=== PATIENT | male | born 1945 | race Caucasian/White ===

== ENCOUNTER → 2017-10-16 | Outpatient (CLI) | payer MEDICARE, OTHER ==
--- NOTE | 2017-10-16 13:58 | RADIOLOGY REPORT (SQ) ---
EXAM DESCRIPTION: CT CHEST WITHOUT COMPLETED DATE/TIME: 10/16/2017 1:12 pm REASON FOR STUDY: DYSPNEA (R06.00) R06.00 DYSPNEA, UNSPECIFIED COMPARISON: None. TECHNIQUE: CT scan performed of the chest without intravenous contrast. Images reviewed with lung, soft tissue and bone windows. Reconstructed coronal and sagittal MPR images reviewed. All images st ored on PACS. All CT scanners at this facility use dose modulation, iterative reconstruction, and/or weight based d osing when appropriate to reduce radiation dose to as low as reasonably achievable (ALARA). [facility]: Dose Right [facility]: CareDose [facility]: Dose Right [facility]: Teradose 4D [facility]: Smart [employer] RADIATION DOSE: CT Rad equipment meets quality standard of care and radiation dose reduction techniq ues were employed. CTDIvol: 15.3 mGy. DLP: 604 mGy-cm. mGy. LIMITATIONS: No technical limitations. FINDINGS: LUNGS AND PLEURA: Paraseptal emphysema. Spiculated nodule anterior right upper lobe measu ring about 13 mm suspicious for neoplasm. No effusions. HILAR AND MEDIASTINAL STRUCTURES: Small mediastinal nodes measuring up to about 1 cm in short axis. No bulky adenopathy. HEART AND VASCULAR STRUCTURES: No aneurysm. No pericardial effusion. UPPER ABDOMEN: No significant findings. Limited exam. THYROID AND OTHER SOFT TISSUES: No masses. No adenopathy. BONES: No significant finding. HARDWARE: None in the chest. OTHER: No other significant findings. IMPRESSION: Right upper lobe pulmonary nodule suspicious for neoplasm. Consider correlation with PE T-CT to determine if hypermetabolic. Lesion is amenable to CT-guided biopsy. . TECHNICAL DOCUMENTATION: JOB ID: [id number] Quality ID # [id number]: Final reports with documentation of one or more dose reduction techniques (e.g., Au tomated exposure control, adjustment of the mA and/or kV according to patient size, use of iterative reconstruction technique) 2010 [employer]- All Rights Reserved
== END ==
LOC: RAD 12:57
PROVIDERS: ATTEND Physician Assistant
DX: R06.00 Dyspnea, unspecified (principal); R91.1 Solitary pulmonary nodule
CPT/HCPCS: 71250

== ENCOUNTER → 2017-10-28 | Outpatient (CLI) | payer MEDICARE, OTHER ==
--- NOTE | 2017-10-29 08:03 | RADIOLOGY REPORT (SQ) ---
EXAM DESCRIPTION: PET CT SKULL/THIGH COMPLETED DATE/TIME: 10/28/2017 8:29 pm REASON FOR STUDY: R91.8 OTHER NONSPECIFIC ABNORMAL FINDING OF LUNG FIELD R91.1 SOLITARY PULMONARY N ODULE R91.8 OTHER NONSPECIFIC ABNORMAL FINDING OF LUNG FIELD COMPARISON: CT chest 10/16/2017 RADIONUCLIDE AND DOSE: 9.5 mCi F18 FDG The route of agent administration: Intravenous FASTING BLOOD SUGAR: 86 mg/dl CONTRAST TYPE AND DOSE: No CT contrast given. TECHNIQUE: Blood glucose level was verified. Above dose of FDG was injected intravenously. 2-D seg mented attenuation correction images were obtained from the base of the skull to the midthighs. Nonc ontrast CT images were obtained for attenuation correction and fusion with emission images. CT image s were performed without oral or intravenous contrast and are not sensitive for parenchymal lesions. A series of overlapping emission PET images were obtained. Images reviewed and manipulated at [facility] work station by the radiologist. Images stored on PACS. LIMITATIONS: None. FINDINGS: HEAD AND NECK: No areas of abnormal metabolic activity in the soft tissues of the head and neck. CHEST: A right upper lobe 1.4 x 1.3 cm spiculated nodule is present on axial image 72, just deep to t he right anterior 2nd rib. This has SUV of 5.4. There are multiple enlarged metabolically active lymph nodes as follows: Right paratracheal 2.5 x 1.1 cm image 80, SUV 2.6 Precarinal 1.8 x 1.3 cm image 85, SUV 3 Precarinal 2.1 x 1.2 cm image 85, SUV 2.8 Right hilar 1.6 x 1.3 cm image 95, SUV 3.2 Left hilar 1.5 x 1.2 cm image 93, SUV 3.5 Sub- carinal 3.1 x 1.0 cm image 95, SUV 3.2 ABDOMEN AND PELVIS: No areas of abnormal metabolic activity in the abdomen or pelvis. Expected physi ologic activity is present in the genitourinary system and bowel. PROXIMAL LOWER EXTREMITIES: No areas of abnormal metabolic activity in the soft tissues of the lower extremities. BONES: No abnormal metabolic activity in the visualized skeleton. ADDITIONAL CT FINDINGS: Mild diffuse degenerative changes throughout the spine. Dependent atelectasi s right posterior costophrenic sulcus. Small hiatal hernia. Bilateral renal cortical cysts. OTHER: Liver background 2.6 SUV. Blood pool background 2.3 SUV IMPRESSION: Hypermetabolic right upper lobe nodule worrisome for malignancy, just deep to the anteri or right 2nd rib. Mediastinal adenopathy TECHNICAL DOCUMENTATION: JOB ID: [id number] [employer]- All Rights Reserved Reading location - IP/workstation name: [email or web address]
== END ==
LOC: RAD 16:43
PROVIDERS: ATTEND Physician Assistant
DX: R91.1 Solitary pulmonary nodule (principal); R91.8 Other nonspecific abnormal finding of lung field
CPT/HCPCS: 78815; A9552

== ENCOUNTER → 2017-11-10 | Day surgery (SDC) | payer MEDICARE, OTHER ==
[2017-11-10 09:47] VITALS: BP 129/81
[2017-11-10 09:51] LABS: HEMATOCRIT 46.9 % (37.9-51.0); MEAN CORPUSCULAR HEMOGLOBIN 30.9 pg (27.0-33.4); MEAN CORPUSCULAR HGB CONC 34.1 g/dL (32.0-36.0); MEAN CORPUSCULAR VOLUME 91 fl (80-97); PLATELET COUNT 222 10^3/uL (150-450); RED BLOOD COUNT 5.17 10^6/uL (4.35-5.55); RED CELL DISTRIBUTION WIDTH 13.8 % (11.5-14.0); WHITE BLOOD COUNT 8.9 10^3/uL (4.0-10.5)
[2017-11-10 10:06] LABS: INTERNATIONAL RATION (INR) 0.88; PROTHROMBIN TIME 12.6 SEC (11.4-15.4)
[2017-11-10 10:07] LABS: PARTIAL THROMBOPLASTIN TIME 30.4 SEC (23.5-35.8)
[2017-11-10 10:09] LABS: BLOOD UREA NITROGEN 13 mg/dL (7-20)
--- NOTE | 2017-11-10 17:00 | RADIOLOGY REPORT (SQ) ---
EXAM DESCRIPTION: CT CHEST WITHOUT COMPLETED DATE/TIME: 11/10/2017 11:09 am REASON FOR STUDY: SOLITARY PULMONARY NODULE R91.1 SOLITARY PULMONARY NODULE Z79.01 CORRECTION (CURR ENT) USE OF ANTICOAGULANTS COMPARISON: 10/16/2017. TECHNIQUE: Limited CT scan performed of the chest without intravenous contrast to evaluate for percu taneous CT-guided biopsy. Images reviewed with lung, soft tissue and bone windows. Reconstructed co eric and sagittal MPR images reviewed. All images stored on PACS. All CT scanners at this facility use dose modulation, iterative reconstruction, and/or weight based d osing when appropriate to reduce radiation dose to as low as reasonably achievable (ALARA). [facility]: Dose Right [facility]: CareDose [facility]: Dose Right [facility]: Teradose 4D [facility]: [employer] RADIATION DOSE: CT Rad equipment meets quality standard of care and radiation dose reduction techniq ues were employed. CTDIvol: 19.4 mGy. DLP: 354 mGy-cm. mGy. LIMITATIONS: No technical limitations. FINDINGS: Spiculated mass in the right upper lobe. Located immediately adjacent to the 2nd rib. Du e to the location and distance from the skin surface, it was felt that there was not an adequate wind ow to safely perform percutaneous biopsy. Anterior approach had a very narrow window with at least 1 0 cm distance from the skin surface. Axillary approach and posterior approach would not be feasible due to overlying axillary structures and the scapula. IMPRESSION: SPICULATED MASS IN THE RIGHT UPPER LOBE WITH FINDINGS ABOVE. TECHNICAL DOCUMENTATION: JOB ID: [id number] Quality ID # [id number]: Final reports with documentation of one or more dose reduction techniques (e.g., Au tomated exposure control, adjustment of the mA and/or kV according to patient size, use of iterative reconstruction technique) 2010 [employer]- All Rights Reserved Reading location - IP/workstation name: [email or web address]
== END ==
LOC: RAD 08:49
PROVIDERS: ATTEND Physician Assistant
PROC: 0BBC3ZX Excision of Right Upper Lung Lobe, Percutaneous Approach, Diagnostic (ICD-10-PCS; principal; 2017-11-10)
DX: R91.1 Solitary pulmonary nodule (principal); Z79.01 Long term (current) use of anticoagulants
CPT/HCPCS: 36415; 71250; 82565; 84520; 85027; 85610; 85730

== ENCOUNTER → 2018-06-22 | Outpatient (CLI) | payer MEDICARE, OTHER ==
--- NOTE | 2018-06-22 13:40 | RADIOLOGY REPORT (SQ) ---
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 TECHNIQUE: CT scan performed of the chest without intravenous contrast. Images reviewed with lung, soft tissue and bone windows. Reconstructed coronal and sagittal MPR images reviewed. All images st ored on PACS. All CT scanners at this facility use dose modulation, iterative reconstruction, and/or weight based d osing when appropriate to reduce radiation dose to as low as reasonably achievable (ALARA). [facility]: Dose Right [facility]: CareDose [facility]: Dose Right [facility]: Teradose 4D [facility]: [employer] RADIATION DOSE: CT Rad equipment meets quality standard of care and radiation dose reduction techniq ues were employed. CTDIvol: 13.6 mGy. DLP: 522 mGy-cm. mGy. LIMITATIONS: No technical limitations. FINDINGS: LUNGS AND PLEURA: Status post wedge resection of previously described right upper lobe hyp ermetabolic nodule. There is a rind of partially calcified tissue in the surgical bed. No new nodul es. No effusions. HILAR AND MEDIASTINAL STRUCTURES: No identified masses or abnormal nodes. No obvious aneurysm. HEART AND VASCULAR STRUCTURES: No aneurysm. No pericardial effusion. UPPER ABDOMEN: No significant findings. Limited exam. THYROID AND OTHER SOFT TISSUES: No masses. No adenopathy. BONES: No significant finding. HARDWARE: None in the chest. OTHER: No other significant findings. IMPRESSION: Expected postsurgical changes. No evidence of metastatic disease. TECHNICAL DOCUMENTATION: JOB ID: [id number] Quality ID # [id number]: Final reports with documentation of one or more dose reduction techniques (e.g., Au tomated exposure control, adjustment of the mA and/or kV according to patient size, use of iterative reconstruction technique) 2010 [employer]- All Rights Reserved Reading location - IP/workstation name: [email or web address]
== END ==
LOC: RAD 16:32
PROVIDERS: ATTEND Physician Assistant
DX: C34.91 Malignant neoplasm of unspecified part of right bronchus or lung (principal)
CPT/HCPCS: 71250

== ENCOUNTER 2019-03-24 03:53 | Emergency (ER) | payer MEDICARE, OTHER ==
--- NOTE | 2019-03-24 04:41 | ER Document Report ---
ED Respiratory Problem - General Chief Complaint: Breathing Difficulty Stated Complaint: SHORTNESS OF BREATH Time Seen by Provider: 03/24/19 04:21 Primary Care Provider: DOLLY HOPKINS MD [ACTIVE STAFF] - Follow up in 3-5 days Notes: Patient is a 74-year-old male that comes to the emergency department for chief complaint of shortness of breath. He states that he has had shortness of breath ever since he had surgery on his right ribs for repair (states that his ribs were spread to far with the previously performed partial lobectomy of the right lung for cancer, this was repaired with mesh by Dr. Danuta Read at [facility] 2 weeks ago). He states he has been tracking his home oxygen saturation, he is averaging at 95%, he does not wear home oxygen. He states that tonight he dropped down into the mid to low 80s while walking and became concerned. He denies fever, wheezing, chest pain, lower extremity swelling. He denies history of blood clots. Past medical history of COPD, former smoker stopped this year. Remaining medical history includes hypertension, BPH, hyperlipidemia. TRAVEL OUTSIDE OF THE [place] IN LAST 30 DAYS: No - Related Data Allergies/Adverse Reactions: No Known Allergies Allergy (Verified 11/10/17 09:23) Past Medical History - General Information source: Patient - Social History Smoking Status: Former Smoker Frequency of alcohol use: None Drug Abuse: None Lives with: Alone Family History: Reviewed & Not Pertinent - Past Medical History Cardiac Medical History: Reports: Hx Coronary Artery Disease - Angioplasty "a long time ago", "im not sure what they found", Hx Hypertension Denies: Hx Heart Attack Pulmonary Medical History: Reports: Hx COPD Denies: Hx Asthma, Hx Bronchitis, Hx Pneumonia Neurological Medical History: Denies: Hx Cerebrovascular Accident, Hx Seizures Malignancy Medical History: Reports Hx Lung Cancer - Status post right lung resection Musculoskeletal Medical History: Denies Hx Arthritis Past Surgical History: Reports: Hx Orthopedic Surgery - back 2005, finger 2006, Other - Partial lobectomy of the right lung, repair of the ribs after the surgery - Immunizations Hx Diphtheria, Pertussis, Tetanus Vaccination: Yes - 2006 Review of Systems - Review of Systems Constitutional: No symptoms reported EENT: No symptoms reported Cardiovascular: No symptoms reported Respiratory: See HPI Gastrointestinal: No symptoms reported Genitourinary: No symptoms reported Male Genitourinary: No symptoms reported Musculoskeletal: No symptoms reported Skin: No symptoms reported Hematologic/Lymphatic: No symptoms reported Neurological/Psychological: No symptoms reported Physical Exam - Vital signs Vitals: Temp Pulse Resp BP Pulse Ox 97.6 F 73 22 H 178/93 H 96 03/24/19 04:11 03/24/19 04:11 03/24/19 04:11 03/24/19 04:11 03/24/19 04:11 - Notes Notes: GENERAL: Alert, interacts well. No acute distress. HEAD: Normocephalic, atraumatic. EYES: Pupils equal, round, and reactive to light. Extraocular movements intact. ENT: Oral mucosa moist, tongue midline. Oropharynx unremarkable. Airway patent. Mild congestion of the nares, no nasal septal hematoma, TM's intact. NECK: Full range of motion. Supple. Trachea midline. LUNGS: Mildly decreased breath sounds throughout, no wheezing, rales, or rhonchi. No respiratory distress. Speaks in full sentences. HEART: Regular rate and rhythm. No murmur ABDOMEN: Soft, non-tender. Non-distended. GENITOURINARY: Deferred EXTREMITIES: Moves all 4 extremities spontaneously. No edema, normal radial and dorsalis pedis pulses bilaterally. No cyanosis. BACK: no cervical, thoracic, lumbar midline tenderness. No saddle anesthesia, normal distal neurovascular exam. Moves all extremities in full range of motion. NEUROLOGICAL: Alert and oriented x3. Normal speech. Cranial nerves II through XII grossly intact. PSYCH: Normal affect, normal mood. SKIN: Warm, dry, normal turgor. Well-healed linear scar over the right lower lateral chest/ribs area. Course - Re-evaluation Re-evalutation: Lungs are actually clear on exam, no edema of the lower extremities noted, patient is not tachypneic, patient is not hypoxic. Patient is postoperative with an obvious postoperative scar on the right side which is healed well. Chest x-ray clear, CBC, chemistry, troponin, BNP are all unremarkable. Discussed with patient. Because of his postop and because of his dyspnea CTA was performed, however this was negative for any acute findings, just shows emphysema and previous surgery on the right lung. No pulmonary embolus. Patient ambulated with pulse ox, he maintained 98% without any desaturation or labored breathing. I discussed the patient. Patient is very relieved about this. Patient does have some mild sinus congestion, after further discussion there appears to be some component of sinus drainage along with this. Given recommendations for this. 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 Patient states satisfaction and agreement. Stable at time of discharge. - Vital Signs Vital signs: Temp Pulse Resp BP Pulse Ox 97.7 F 73 20 111/92 H 96 03/24/19 07:18 03/24/19 04:11 03/24/19 07:18 03/24/19 07:18 03/24/19 07:18 - Laboratory Result Diagrams: 03/24/19 04:48 03/24/19 04:48 Laboratory results interpreted by me: 03/24/19 04:48 Eosinophils % 6.1 H Discharge - Discharge Clinical Impression: Shortness of breath Condition: Stable Disposition: HOME, SELF-CARE Additional Instructions: No acute findings are noted on your evaluation including imaging of the lungs and blood vessels to the lungs. No pneumonia, fluid, or blood clots are seen. There actually seems to be a sinus congestion component to your symptoms, recommend [id number] anti-allergy such as cetirizine, continue nasal spray, follow-up with primary care. Return if you worsen including fever, passing out, chest pain, difficulty breathing, or any other concerning or worsening symptoms. Referrals: DOLLY HOPKINS MD [ACTIVE STAFF] - Follow up in 3-5 days
[2019-03-24 05:05] LABS: ABSOLUTE BASOPHILS # (AUTO) 0.1 10^3/uL (0.0-0.2); ABSOLUTE EOSINOPHILS # (AUTO) 0.5 10^3/uL (0.0-0.6); ABSOLUTE LYMPHOCYTES (AUTO) 1.3 10^3/uL (0.5-4.7); ABSOLUTE MONOCYTES (AUTO) 0.7 10^3/uL (0.1-1.4); ABSOLUTE NEUT (AUTO) 6.3 10^3/uL (1.7-8.2); BASOPHILS % (AUTO) 1.1 % (0-2); EOSINOPHILS % (AUTO) 6.1 % (0-6); HEMATOCRIT 41.3 % (37.9-51.0); HEMOGLOBIN 13.8 g/dL (13.5-17.0); LYMPHOCYTES % (AUTO) 14.3 % (13-45); MEAN CORPUSCULAR HEMOGLOBIN 29.9 pg (27.0-33.4); MEAN CORPUSCULAR HGB CONC 33.3 g/dL (32.0-36.0); MEAN CORPUSCULAR VOLUME 90 fl (80-97); MONOCYTES % (AUTO) 8.3 % (3-13); PLATELET COUNT 278 10^3/uL (150-450); SEGMENTED NEUTROPHILS % (AUTO) 70.2 % (42-78); TOTAL CELLS COUNTED % (AUTO) 100 %; WHITE BLOOD COUNT 8.9 10^3/uL (4.0-10.5)
[2019-03-24 05:22] LABS: ALANINE AMINOTRANSFERASE 26 U/L (21-72); ALBUMIN 4.5 g/dL (3.5-5.0); ALKALINE PHOSPHATASE 71 U/L (38-126); ANION GAP 11 (5-19); ASPARTATE AMINO TRANSFERASE 27 U/L (17-59); BILIRUBIN,DIRECT 0.2 mg/dL (0.0-0.4); BILIRUBIN,TOTAL 0.3 mg/dL (0.2-1.3); BLOOD UREA NITROGEN 14 mg/dL (7-20); CALCIUM 9.4 mg/dL (8.4-10.2); CARBON DIOXIDE 27 mmol/L (22-30); CHLORIDE 102 mmol/L (98-107); GLUCOSE 100 mg/dL (75-110); POTASSIUM 4.2 mmol/L (3.6-5.0); TOTAL PROTEIN 7.9 g/dL (6.3-8.2)
--- NOTE | 2019-03-24 05:23 | RADIOLOGY REPORT (SQ) ---
EXAM DESCRIPTION: X-ray single view chest. CLINICAL HISTORY: 74 years Male, shortness of breath COMPARISON: CT chest performed on 06/22/2018 TECHNIQUE: Single portable x-ray view of the chest performed on 03/24/2019 at 5:04 AM FINDINGS: The lungs are well expanded and are clear. There is no evidence of a pneumothorax. The cardiac silhouette is normal in size and configuration. The mediastinal contours are normal. No acute osseous abnormality is identified. No focal soft tissue abnormalities are seen. Lines and tubes: None. IMPRESSION: No evidence of acute intrathoracic disease.
[2019-03-24 05:34] LABS: NT PRO BNP 53 pg/mL (5-900)
[2019-03-24 05:36] LABS: TROPONIN I < 0.012 ng/mL
--- NOTE | 2019-03-24 06:29 | RADIOLOGY REPORT (SQ) ---
CT angiogram chest with contrast on 03/24/2019 at 5:55 AM CLINICAL INDICATION: Shortness of breath, postop TECHNIQUE: Multiple axial images are obtained throughout the chest following the administration of IV contrast. Computer generated 3D reconstructions/MIPS were performed. This exam was performed according to our departmental dose-optimization program, which includes automated exposure control, adjustment of the mA and/or kV according to patient size and/or use of iterative reconstruction technique. Total DLP is 819.91 mGy*cm. COMPARISON: 06/22/2018 FINDINGS: There is no thoracic aortic aneurysm or dissection. Limited visualized upper abdomen is unremarkable. There is trace pericardial effusion. There is no pleural effusion. There are no filling defects within the pulmonary arteries to suggest pulmonary embolus. There is no thoracic adenopathy by CT size criteria. There is stable evidence of prior wedge resection in the right upper lobe. Emphysematous changes of the lungs are noted. The lungs are otherwise clear. Degenerative changes are noted in the spine. IMPRESSION: 1. No evidence of pulmonary embolus. 2. Emphysema. 3. Stable appearance of postoperative changes from wedge resection in the right upper lobe.
[2019-03-24 07:26] VITALS: BP 111/92
--- NOTE | 2019-03-24 23:58 | EKG REPORT ---
SEVERITY:- OTHERWISE NORMAL ECG - SINUS RHYTHM ATRIAL PREMATURE COMPLEX : Confirmed by: Jesus Tadeo 24-Mar-2019 23:58:10
== END 2019-03-24 07:26 | disposition home or self-care (01) ==
LOC: ER 03:53
DX: J43.9 Emphysema, unspecified (principal); R06.02 Shortness of breath; R09.81 Nasal congestion; I25.10 Atherosclerotic heart disease of native coronary artery without angina pectoris; I10 Essential (primary) hypertension; Z98.890 Other specified postprocedural states; Z90.2 Acquired absence of lung [part of]; Z85.118 Personal history of other malignant neoplasm of bronchus and lung; Z87.891 Personal history of nicotine dependence
CPT/HCPCS: 36415; 71045; 71275; 80053; 83880; 84484; 85025; 93005; 93010; 99285

== ENCOUNTER 2019-03-31 17:24 | Emergency (ER) | payer MEDICARE, OTHER ==
[2019-03-31] MEDS ORDERED: LIDOCAINE 1% INJ-PF (10 MG/ML) 30 ML SDV INJ ONE (18:28)
[2019-03-31] MEDS ORDERED: DIPH/PERTUSS(ACELL)/TETANUS VAC/PF 0.5 ML SYR (>=10YO) IM ONE (18:30)
--- NOTE | 2019-03-31 19:22 | RADIOLOGY REPORT (SQ) ---
EXAM DESCRIPTION: RIBS RIGHT W/PA CHEST COMPLETED DATE/TIME: 03/31/2019 6:47 pm REASON FOR STUDY: fall, recent rib lung surgery COMPARISON: None. TECHNIQUE: Frontal view of the chest and additional views of the right ribs acquired. NUMBER OF VIEWS: Four view. LIMITATIONS: None. FINDINGS: FRONTAL CXR: No pneumothorax. No pleural effusion. No atelectasis or infiltrates. Posts urgical changes in the right upper lobe. RIBS: No displaced rib fractures. Prior resection of the right anterior-lateral 9th rib. OTHER: No other significant finding. IMPRESSION: NO PNEUMOTHORAX. NO DISPLACED RIB FRACTURES. COMMENT: SITE OF TRAUMA/COMPLAINT MARKED/STAMP COMPLETED: NO. TECHNICAL DOCUMENTATION: JOB ID: [id number] [place]-72 2010 [employer]- All Rights Reserved Reading location - IP/workstation name: [email or web address]
--- NOTE | 2019-03-31 20:10 | ER Document Report ---
Addendum entered and electronically signed by LURDES GOTTI NP 04/02/19 19:22: Physical Exam - Vital signs Vitals: Temp Pulse Resp BP Pulse Ox 97.6 F 98 20 135/77 H 96 03/31/19 17:32 03/31/19 17:32 03/31/19 17:32 03/31/19 17:32 03/31/19 17:32 - Skin Notes: 3 cm laceration to right hand, approximates well, no active bleeding noted. Addendum entered and electronically signed by LURDES GOTTI NP 04/02/19 19:20: Procedures - Laceration/Wound Repair RIGHT HAND Wound length (cm): 3 Wound's Depth, Shape: Superficial Laceration pre-procedure: Sterile PPE donned Anesthetic type: 1% Lidocaine Wound explored: Clean Wound Debrided: Minimal Wound Repaired With: Sutures Suture Size/Type: 5:0, Nylon Number of Sutures: 6 Layer Closure?: No Post-procedure wound care: Sterile dressing applied Post-procedure NV exam normal: Yes Complications: No Addendum entered and electronically signed by LURDES GOTTI NP 04/02/19 19:19: History of Present Illiness - HPI Note: EDIT: PREVIOUS HPI INCORRECT CORRECTED VERSION: 74-year-old male patient presenting to the emergency department with complaint of right anterior and lateral rib pain and laceration to his right hand after he states his railing broke on his porch and he tripped down one step. He denies striking his head, denies any loss of consciousness. He denies any shortness of breath but does state that pain is increased with deep breaths. Addendum entered and electronically signed by LURDES GOTTI NP 04/02/19 19:17: Course - Re-evaluation Re-evalutation: 04/02/19 19:14 EDIT TO previous course notes, documentation was done on the wrong patient. Mr. Iain Culp had a laceration repair done to the right hand. See procedure note. He also had some complaints of right anterior and lateral rib pain. And chest x-ray with ribs was performed and was negative for any fractured ribs or pneumothorax, see radiology report below. Patient's physical examination is reassuring, he is clear and equal lung sounds bilaterally. - Vital Signs Vital signs: Temp Pulse Resp BP Pulse Ox 98.6 F 104 H 20 123/80 96 03/31/19 20:18 03/31/19 20:18 03/31/19 20:18 03/31/19 20:18 03/31/19 20:18 Original Note: HPI - HPI Time Seen by Provider: 03/31/19 18:11 Pain Level: 3 Notes: 74-year-old male patient presented to the emergency department with request to have his Mckeon catheter removed. Patient reports Mckeon was placed approximately 1 week ago while he was an inpatient at [facility]. He states it was placed for acute urinary retention. He states he has been unable to get an appointment with a urologist. He states he has been given the run around by the OR and they have also refused to remove the catheter. Patient denies any acute symptoms today. - DERM Skin Color: Normal, [place] Past Medical History - General Information source: Patient - Social History Smoking Status: Former Smoker Frequency of alcohol use: None Drug Abuse: None Family History: Reviewed & Not Pertinent Patient has suicidal ideation: No Patient has homicidal ideation: No - Past Medical History Cardiac Medical History: Reports: Hx Coronary Artery Disease - Angioplasty "a long time ago", "im not sure what they found", Hx Hypercholesterolemia, Hx Hypertension Denies: Hx Heart Attack Pulmonary Medical History: Reports: Hx COPD Denies: Hx Asthma, Hx Bronchitis, Hx Pneumonia Neurological Medical History: Denies: Hx Cerebrovascular Accident, Hx Seizures Renal/ Medical History: Denies: Hx Peritoneal Dialysis Malignancy Medical History: Reports Hx Lung Cancer - Status post right lung resection Musculoskeletal Medical History: Denies Hx Arthritis Past Surgical History: Reports: Hx Orthopedic Surgery - back 2005, finger 2006, Other - Partial lobectomy of the right lung, repair of the ribs after the surgery - Immunizations Hx Diphtheria, Pertussis, Tetanus Vaccination: Yes - 2007 Vertical Provider Document - CONSTITUTIONAL Notes: PHYSICAL EXAMINATION: GENERAL: Well-appearing, well-nourished and in no acute distress. HEAD: Atraumatic, normocephalic. EYES: Pupils equal round and reactive to light, extraocular movements intact, sclera anicteric, conjunctiva are normal. ENT: Nares patent, oropharynx clear without exudates. Moist mucous membranes. NECK: Normal range of motion, supple without lymphadenopathy LUNGS: Breath sounds clear to auscultation bilaterally and equal. No wheezes rales or rhonchi. HEART: Regular rate and rhythm without murmurs ABDOMEN: Soft, nontender, nondistended abdomen. No guarding, no rebound. No masses appreciated. Musculoskeletal: Normal range of motion, no pitting or edema. No cyanosis. NEUROLOGICAL: Cranial nerves grossly intact. Normal speech, normal gait. Norm al sensory, motor exams PSYCH: Normal mood, normal affect. SKIN: Warm, Dry, normal turgor, no rashes or lesions noted. - INFECTION CONTROL TRAVEL OUTSIDE OF THE [place] IN LAST 30 DAYS: No Course - Re-evaluation Re-evalutation: Dr. Morgan came to the bedside we discussed bladder training with the patient, he will clamp his Mckeon catheter every 4-6 hours releasing it. He will return in 24 to 48 hours for catheter removal. Patient is agreeable to this plan. The patient's emergency department workup and current diagnosis were explained to the patient and or family. Follow-up instructions were provided. Medications if prescribed were discussed. Instructions for when to return to the emergency department including specific worrisome symptoms were discussed with the patient and/or family. - Vital Signs Vital signs: Temp Pulse Resp BP Pulse Ox 97.6 F 98 20 135/77 H 96 03/31/19 17:32 03/31/19 17:32 03/31/19 17:32 03/31/19 17:32 03/31/19 17:32 Discharge - Discharge Clinical Impression: Laceration Condition: Stable Disposition: HOME, SELF-CARE Additional Instructions: Laceration Care Your laceration has been sutured to keep the skin edges aligned during healing. The time of suture removal depends on the nature and location of your cut. Please follow the care instructions the doctor has outlined for you and return for further care, according to the schedule you've been given. Keep the wound and dressing clean. Unless you were told otherwise, you may shower daily, blotting the wound dry with a clean, unused towel. At other times, If the dressing gets wet or blood soaked, remove it and blot the wound dry, then reapply a new dressing. Unless you were instructed otherwise, dressings should be changed at least daily. If any signs of infection occur (swelling, redness, increasing tenderness, red streaks, tender lumps in the armpit or groin above the laceration, or fever), see the doctor immediately. Please return to the emergency department or your primary care provider in 10-12 days for suture removal. Please return earlier if you develop any signs of infection such as increased redness, swelling, foul-smelling drainage or fever. Prescriptions: Cephalexin [Cephalexin 500 MG Tablet] 1 tab PO BID #14 tablet
[2019-03-31 20:21] VITALS: BP 123/80
== END 2019-03-31 20:18 | disposition home or self-care (01) ==
LOC: ER 17:24
DX: S61.411A Laceration without foreign body of right hand, initial encounter (principal); R07.81 Pleurodynia; W10.8XXA Fall (on) (from) other stairs and steps, initial encounter; W45.0XXA Nail entering through skin, initial encounter; I25.10 Atherosclerotic heart disease of native coronary artery without angina pectoris; I10 Essential (primary) hypertension; J44.9 Chronic obstructive pulmonary disease, unspecified; Z85.118 Personal history of other malignant neoplasm of bronchus and lung; Z90.2 Acquired absence of lung [part of]
CPT/HCPCS: 90471; 90715; 99282

== ENCOUNTER 2020-07-03 09:32 | Emergency (ER) | payer MEDICARE, OTHER ==
--- NOTE | 2020-07-03 10:27 | ER Document Report ---
ED Medical Screen (RME) - General Chief Complaint: Mouth Problem Stated Complaint: MOUTH PAIN Time Seen by Provider: 07/03/20 10:10 TRAVEL OUTSIDE OF THE [place] IN LAST 30 DAYS: No - HPI Notes: 07/03/20 10:25 75-year-old male to the emergency department with complaints of multiple mouth sores have been ongoing for he thinks maybe 4 days. He states he was at [facility] for someone who and there were "a lot of girls who are kissing on people". he states that a friend called him and asked him if he had sores on his mouth. He stated that he did and his friend told him he should seek medical attention. He states that he has a sore on the outside of the right mouth and underneath his tongue he has several color changes. Denies any fevers or chills. He is on chronic pain medicine for his back. He denies any other symptoms. Brief medical screening exam reveals what looks like angular cheilitis on both sides of the mouth but in inspection of the tongue there are small petechiae and purpura. The patient is on a blood thinner. Reviewed I performed a brief medical screening exam on the patient determined that the patient needs further evaluation and management by main side provider. I have placed initial orders to help expedite care. - Related Data Allergies/Adverse Reactions: No Known Allergies Allergy (Verified 03/31/19 17:24) Past Medical History - Past Medical History Cardiac Medical History: Reports: Hx Coronary Artery Disease - Angioplasty "a long time ago", "im not sure what they found", Hx Hypercholesterolemia, Hx Hypertension Denies: Hx Heart Attack Pulmonary Medical History: Reports: Hx COPD Denies: Hx Asthma, Hx Bronchitis, Hx Pneumonia Neurological Medical History: Denies: Hx Cerebrovascular Accident, Hx Seizures Renal/ Medical History: Denies: Hx Peritoneal Dialysis Malignancy Medical History: Reports Hx Lung Cancer - Status post right lung resection Musculoskeltal Medical History: Denies Hx Arthritis Past Surgical History: Reports: Hx Orthopedic Surgery - back 2005, finger 2006, Other - Partial lobectomy of the right lung, repair of the ribs after the surgery - Immunizations Hx Diphtheria, Pertussis, Tetanus Vaccination: Yes - 2006 Physical Exam - Vital signs Vitals: Temp Pulse Resp BP Pulse Ox 97.7 F 94 18 102/59 L 96 07/03/20 09:46 07/03/20 09:46 07/03/20 09:46 07/03/20 09:46 07/03/20 09:46 Course - Vital Signs Vital signs: Temp Pulse Resp BP Pulse Ox 97.7 F 94 18 102/59 L 96 07/03/20 09:46 07/03/20 09:46 07/03/20 09:46 07/03/20 09:46 07/03/20 09:46
[2020-07-03 11:11] LABS: ABSOLUTE BASOPHILS # (AUTO) 0.1 10^3/uL (0.0-0.2); ABSOLUTE EOSINOPHILS # (AUTO) 0.3 10^3/uL (0.0-0.6); ABSOLUTE LYMPHOCYTES (AUTO) 0.9 10^3/uL (0.5-4.7); ABSOLUTE MONOCYTES (AUTO) 0.6 10^3/uL (0.1-1.4); ABSOLUTE NEUT (AUTO) 7.5 10^3/uL (1.7-8.2); BASOPHILS % (AUTO) 1.1 % (0-2); EOSINOPHILS % (AUTO) 3.3 % (0-6); HEMATOCRIT 42.7 % (37.9-51.0); HEMOGLOBIN 14.8 g/dL (13.5-17.0); LYMPHOCYTES % (AUTO) 9.3 % (13-45); MEAN CORPUSCULAR HEMOGLOBIN 31.4 pg (27.0-33.4); MEAN CORPUSCULAR HGB CONC 34.7 g/dL (32.0-36.0); MEAN CORPUSCULAR VOLUME 90 fl (80-97); MONOCYTES % (AUTO) 6.5 % (3-13); PLATELET COUNT 274 10^3/uL (150-450); RED BLOOD COUNT 4.73 10^6/uL (4.35-5.55); RED CELL DISTRIBUTION WIDTH 13.6 % (11.5-14.0); SEGMENTED NEUTROPHILS % (AUTO) 79.8 % (42-78); TOTAL CELLS COUNTED % (AUTO) 100 %; WHITE BLOOD COUNT 9.4 10^3/uL (4.0-10.5)
[2020-07-03 11:14] LABS: INTERNATIONAL RATION (INR) 1.02; PROTHROMBIN TIME 13.6 SEC (11.4-15.4)
[2020-07-03 11:36] LABS: ALBUMIN 3.9 g/dL (3.5-5.0); ALKALINE PHOSPHATASE 84 U/L (38-126); ANION GAP 11 (5-19); ASPARTATE AMINO TRANSFERASE 20 U/L (17-59); BILIRUBIN,DIRECT 0.1 mg/dL (0.0-0.4); BILIRUBIN,TOTAL 0.5 mg/dL (0.2-1.3); BLOOD UREA NITROGEN 9 mg/dL (7-20); CALCIUM 9.1 mg/dL (8.4-10.2); CARBON DIOXIDE 24 mmol/L (22-30); CHLORIDE 104 mmol/L (98-107); GLUCOSE 98 mg/dL (75-110); POTASSIUM 4.4 mmol/L (3.6-5.0)
--- NOTE | 2020-07-03 12:40 | ER Document Report ---
ED General - General Chief Complaint: Mouth Problem Stated Complaint: MOUTH PAIN Time Seen by Provider: 07/03/20 10:10 TRAVEL OUTSIDE OF THE [place] IN LAST 30 DAYS: No - HPI Notes: Chief complaint: Mouth irritation History of present illness: 75-year-old male former cigarette smoker presenting with chronic/recurrent irritation of mouth and lips. Patient thought this was possibly something infectious from being kissed by multiple female guests at a about 2 weeks ago. On further questioning he admits he has had some long-term problems with irritation of his mouth and has been seen by ENT for this previously. At 1 point they have talked about doing a biopsy but this was never undertaken. He is not experiencing fever. He is on inhaled steroid for COPD also uses a rescue inhaler. - Related Data Allergies/Adverse Reactions: No Known Allergies Allergy (Verified 03/31/19 17:24) Past Medical History - General Information source: Patient, [facility] Records - Social History Smoking Status: Former Smoker Family History: Reviewed & Not Pertinent - Past Medical History Cardiac Medical History: Reports: Hx Coronary Artery Disease - Angioplasty "a long time ago", "im not sure what they found", Hx Hypercholesterolemia, Hx Hypertension Denies: Hx Heart Attack Pulmonary Medical History: Reports: Hx COPD Denies: Hx Asthma, Hx Bronchitis, Hx Pneumonia Neurological Medical History: Denies: Hx Cerebrovascular Accident, Hx Seizures Renal/ Medical History: Denies: Hx Peritoneal Dialysis Malignancy Medical History: Reports Hx Lung Cancer - Status post right lung resection Musculoskeletal Medical History: Denies Hx Arthritis Past Surgical History: Reports: Hx Orthopedic Surgery - back 2005, finger 2006, Other - Partial lobectomy of the right lung, repair of the ribs after the surgery - Immunizations Hx Diphtheria, Pertussis, Tetanus Vaccination: Yes - 2006 Review of Systems - Review of Systems Notes: Constitutional: Negative for fever. HENT: As per HPI. Eyes: Negative for visual changes. Cardiovascular: Negative for chest pain. Respiratory: Negative for shortness of breath. Gastrointestinal: Negative for abdominal pain, vomiting or diarrhea. Genitourinary: Negative for dysuria. Musculoskeletal: Negative for back pain. Skin: Negative for rash. Neurological: Negative for headaches, weakness or numbness. 10 point ROS negative except as marked above and in HPI. Physical Exam - Vital signs Vitals: Temp Pulse Resp BP Pulse Ox 97.7 F 94 18 102/59 L 96 07/03/20 09:46 07/03/20 09:46 07/03/20 09:46 07/03/20 09:46 07/03/20 09:46 - Notes Notes: GENERAL: Elderly man appearing in no acute distress. SKIN: Good turgor no rashes. HEAD: Normocephalic atraumatic. EYES: PERRLA. EOMI. Conjunctivae and sclerae clear. EARS: CANALS AND TMS CLEAR. NOSE: CLEAR. MOUTH: Patient has cheilitis present. He also has some scattered areas of inflammation on surface of his tongue probably due his use of metered-dose inhalers. Moist mucosa. Good dentition. No stridor or edema. No drooling. NECK: Supple. No masses or thyromegaly. No adenopathy. Carotids 2+ without bruits. No JVD. BACK: Symmetrical without tenderness. CHEST: Respirations unlabored. Breath sounds clear and symmetrical. HEART: Regular rhythm. No murmur gallop or rub. ABDOMEN: Soft nontender without masses, organomegaly or rebound. Bowel sounds normally active. No bruits. GENITALIA: Deferred. EXTREMITIES: No edema. No calf tenderness. Cap refill less than 1.5 seconds. Dorsalis pedis and posterior tibial pulses 3+ and symmetrical. NEUROLOGICAL: GCS 15. Alert and oriented x3. Normal gait. Fluent speech. Cranial nerves II through XII intact. Sensorimotor and cerebellar normal. Normal tone. PSYCHIATRIC: Appropriate affect. Course - Vital Signs Vital signs: Temp Pulse Resp BP Pulse Ox 97.7 F 94 18 102/59 L 96 07/03/20 09:46 07/03/20 09:46 07/03/20 09:46 07/03/20 09:46 07/03/20 09:46 - Laboratory Result Diagrams: 07/03/20 10:29 07/03/20 10:29 Laboratory results interpreted by me: 07/03/20 10:29 Lymph % (Auto) 9.3 L Seg Neutrophils % 79.8 H Discharge - Discharge Clinical Impression: Cheilitis, Glossitis Condition: Stable Disposition: HOME, SELF-CARE Additional Instructions: Use prescribed medications as directed. Follow-up with your nose and throat specialist as advised. Prescriptions: Nystatin/Dexameth/Diphen [Magic Mouthwash ([facility] Formula) Susp] 5 ml PO QID #120 ml Multivit-Stress Formula/Zinc [Zbec Tablet] 1 tab PO DAILY #30 tablet Referrals: LIVAN LOPEZ MD [ACTIVE STAFF] - Follow up as needed
[2020-07-03 12:55] VITALS: BP 102/64
== END 2020-07-03 12:54 | disposition home or self-care (01) ==
LOC: ER 09:32
DX: K14.0 Glossitis (principal); K13.0 Diseases of lips; I25.10 Atherosclerotic heart disease of native coronary artery without angina pectoris; I10 Essential (primary) hypertension; J44.9 Chronic obstructive pulmonary disease, unspecified; Z87.891 Personal history of nicotine dependence; Z85.118 Personal history of other malignant neoplasm of bronchus and lung; Z79.51 Long term (current) use of inhaled steroids; Z79.01 Long term (current) use of anticoagulants
CPT/HCPCS: 36415; 80053; 85025; 85610; 85730; 99283

== ENCOUNTER 2020-07-25 08:28 | Emergency (ER) | payer MEDICARE, OTHER ==
--- NOTE | 2020-07-25 10:29 | RADIOLOGY REPORT (SQ) ---
EXAM DESCRIPTION: KNEE LEFT 4 VIEW IMAGES COMPLETED DATE/TIME: 07/25/2020 9:42 am REASON FOR STUDY: fall/pain COMPARISON: None. NUMBER OF VIEWS: Four views. TECHNIQUE: AP, lateral, and both oblique radiographic images acquired of the left knee. LIMITATIONS: None. FINDINGS: MINERALIZATION: Normal. BONES: No acute fracture or dislocation. No worrisome bone lesions. JOINT: No effusion. SOFT TISSUES: No soft tissue swelling. No radio-opaque foreign body. OTHER: No other significant finding. IMPRESSION: NO RADIOGRAPHIC EVIDENCE OF ACUTE INJURY. TECHNICAL DOCUMENTATION: JOB ID: [id number] 2010 [email or web address] All Rights Reserved Reading location - IP/workstation name: [email or web address]
--- NOTE | 2020-07-25 12:26 | ER Document Report ---
ED Extremity Problem, Lower - General Chief Complaint: Knee Pain Stated Complaint: FALL/LEFT KNEE PAIN Time Seen by Provider: 07/25/20 08:51 Mode of Arrival: Wheelchair Information source: Patient TRAVEL OUTSIDE OF THE [place] IN LAST 30 DAYS: No - HPI Notes: Patient comes emergency room with several complaints. First 1 is left knee pain. Patient states approximately 3 to 4 weeks ago he fell and injured his left knee. Patient states he went to an outside emergency department at that time and had negative x-rays and was told he may possibly need an MRI. He states he has been unable to get an appointment to see an orthopedist. He also states that he has had some tongue irritation and was told he needed to follow- up with ENT but has been unable to see an ENT physician. Both of these symptoms appear to be present for the last 2 to 3 weeks and this appears to be the 2nd- 3rd visit to a physician for each of these problems as above. He states he has tried going to his primary physician as well to obtain referrals but has not been able to secure an appointment. He denies any new issues with the knee or tongue. - Related Data Allergies/Adverse Reactions: No Known Allergies Allergy (Verified 07/25/20 08:47) Past Medical History - General Information source: Patient - Social History Smoking Status: Current Some Day Smoker Chew tobacco use (# tins/day): No Frequency of alcohol use: None Drug Abuse: None Family History: Reviewed & Not Pertinent - Past Medical History Cardiac Medical History: Reports: Hx Coronary Artery Disease - Angioplasty "a long time ago", "im not sure what they found", Hx Hypercholesterolemia, Hx Hypertension Denies: Hx Heart Attack Pulmonary Medical History: Reports: Hx COPD Denies: Hx Asthma, Hx Bronchitis, Hx Pneumonia Neurological Medical History: Denies: Hx Cerebrovascular Accident, Hx Seizures Renal/ Medical History: Denies: Hx Peritoneal Dialysis Malignancy Medical History: Reports Hx Lung Cancer - Status post right lung resection Musculoskeletal Medical History: Denies Hx Arthritis Past Surgical History: Reports: Hx Orthopedic Surgery - back 2005, finger 2006, Other - Partial lobectomy of the right lung, repair of the ribs after the surgery - Immunizations Hx Diphtheria, Pertussis, Tetanus Vaccination: Yes - 2007 Review of Systems - Review of Systems Constitutional: denies: Chills, Fever Cardiovascular: denies: Chest pain, Palpitations Respiratory: denies: Cough, Short of breath -: Yes All other systems reviewed and negative Physical Exam - Vital signs Vitals: Pulse BP Pulse Ox 132 H 100/82 96 07/25/20 08:39 07/25/20 08:39 07/25/20 08:39 Interpretation: Normal - General General appearance: Appears well, Alert - HEENT Head: Normocephalic, Atraumatic Eyes: Normal Pupils: PERRL - Respiratory Respiratory status: No respiratory distress Chest status: Nontender Breath sounds: Normal Chest palpation: Normal - Cardiovascular Rhythm: Regular Heart sounds: Normal auscultation Murmur: No - Abdominal Inspection: Normal Distension: No distension Bowel sounds: Normal Tenderness: Nontender Organomegaly: No organomegaly - Back Back: Normal, Nontender - Extremities General upper extremity: Normal inspection, Nontender, Normal color, Normal ROM, Normal temperature General lower extremity: Normal inspection, Nontender, Normal color, Normal ROM, Normal temperature, Normal weight bearing. No: Jess's sign - Neurological Neuro grossly intact: Yes Cognition: Normal Orientation: AAOx4 Carbon Coma Scale Eye Opening: Spontaneous Carbon Coma Scale Verbal: Oriented Amada Coma Scale Motor: Obeys Commands Carbon Coma Scale Total: 15 Speech: Normal Motor strength normal: LUE, RUE, LLE, RLE Sensory: Normal - Psychological Associated symptoms: Normal affect, Normal mood - Skin Skin Temperature: Warm Skin Moisture: Dry Skin Color: Normal Course - Re-evaluation Re-evalutation: 07/25/20 12:43 Patient presents with several complaints. His main concern seems to be that he is not able to obtain follow-up for his tongue and knee complaints. Social work has seen the patient here and arrange for him to have follow-up appointments with both orthopedics and ear nose and throat. Social work also called and spoke with the daughter so that family could be involved with helping the patient follow-up. Patient understands that he has appointments and has the capacity to follow-up as instructed. X-ray of his knee is unremarkable. Exam is unremarkable other than mild tachycardia. At discharge his heart rate is 104. On his last visit several weeks ago his heart rate was 98 and does seem to run in the 90s over his last several visits. He had laboratories drawn approximately 2 weeks ago that were unremarkable and I do not feel he would benefit from redrawing his laboratories. He denies chest pain and he denies stacey rtness of breath at this time. He does not appear to be in any distress and is nontoxic-appearing I think he has some significant chronic comorbidities that are causing his mildly elevated heart rate but I do not believe that further evaluation in the emergency department would be beneficial to him at this time. I think he needs to take care of these problems through the specialists as an outpatient that includes follow-up with orthopedics, follow-up with ear nose and throat, and follow-up with his thoracic surgeon as scheduled. - Vital Signs Vital signs: Temp Pulse Resp BP Pulse Ox 97.5 F 132 H 18 100/82 97 07/25/20 08:40 07/25/20 08:39 07/25/20 11:00 07/25/20 08:39 07/25/20 10:00 - Diagnostic Test Radiology reviewed: Image reviewed, Reports reviewed - EKG Interpretation by Me EKG shows normal: Sinus rhythm Rate: Tachycardia - 104 Rhythm: NSR [place]/QRS: No: Right axis deviation, Left axis deviation Discharge - Discharge Clinical Impression: Cheilitis Left knee pain Qualifiers: Chronicity: acute Qualified Code(s): M25.562 - Pain in left knee Condition: Stable Disposition: HOME, SELF-CARE Instructions: Suspected Internal Knee Injury ([facility]) Additional Instructions: Please follow up with orthopedics and ENT as scheduled.
--- NOTE | 2020-07-25 12:52 | EKG REPORT ---
SEVERITY:- OTHERWISE NORMAL ECG - SINUS TACHYCARDIA : Confirmed by: Costa Garcia MD 25-Jul-2020 12:51:48
[2020-07-25 13:05] VITALS: BP 106/74
== END 2020-07-25 13:04 | disposition home or self-care (01) ==
LOC: ER 08:28
DX: M25.562 Pain in left knee (principal); K13.0 Diseases of lips; F17.200 Nicotine dependence, unspecified, uncomplicated; J44.9 Chronic obstructive pulmonary disease, unspecified
CPT/HCPCS: 93005; 93010; 99284